=== PATIENT | male | born 1950 | race Caucasian/White ===

== ENCOUNTER 2018-10-08 08:41 | Day surgery (SDC) | payer MEDICARE, OTHER, SELFPAY ==
[2018-09-24 15:05] VITALS: BMI 27.1
[2018-10-08] VITALS (10 sets, daily range): BP systolic 102–125; BP diastolic 63–83; PULSE 54–76; RESP 12–17; TEMP 36.1–36.7; O2SAT 93–99; BMI 27.1
--- NOTE | 2018-10-08 | DI.RAD.S_ITS ---
PROCEDURE: XR LUMBAR SPINE 2-3V INDICATIONS: L5-S1 LAMINECTOMY TECHNIQUE: 2 intraoperative fluoroscopic views of the lumbar spine were acquired. COMPARISON: None. FINDINGS: Intraoperative fluoroscopic images of lower lumbar spine shows surgical instrument placed at left posterior L5-S1 level. IMPRESSION: Fluoroscopy guidance was provided intraoperatively for L5-S1 laminectomy. Dictated by: Roel Rojas M.D. on 10/08/2018 at 13:00 Approved by: Roel Rojas M.D. on 10/08/2018 at 13:01
[2018-10-08] MEDS: LACTATED RINGERS 1,000 ML 42 ML IV ×2 (09:57→12:13)
[2018-10-08] MEDS: CEFAZOLIN 2 GM/100 ML FROZ.PIGGY IV (11:13)
--- NOTE | 2018-10-08 11:36 | SUR.OPER ---
Prone on spine table, head in foam head support, padded chest and pelvic supports, gel pad at knees, lower legs supported by pillows; nipples, genitalia and toes free of pressure, arms secured on foam padded arm boards at <90 degrees abduction. Tape over blanket at thigh secured to table.
[2018-10-08] MEDS: methylPREDNISolone acet DEPO 40 MG/ML VIAL INJ (11:40)
[2018-10-08] MEDS: BUPIVACAINE 0.25% W/ EPI (PF) 10 ML VIAL INJ (11:41)
--- NOTE | 2018-10-08 12:10 | P.OP_ITS ---
Operative Date/Time/Diagnoses Date of procedure: 10/08/18 Time of procedure: 11:08 Pre-op diagnosis: 1. L5-S1 disc herniation 2. Lumbar radiculopathy Post-op diagnosis: same Procedure & Clinicians Procedure: 1. L5-S1 left microdiscectomy 2. Utilization of microsurgical technique and operating microscope Same procedure as scheduled: Yes Indications: Patient has been having chronic back pain and worsening lumbar radiculopathy. Patient failed multiple conservative management with worsening pain weakness and numbness in her lower extremity. Patient has been having difficulty performing activity of daily living. After discussing risks benefits of treatment options, patient elected proceed with surgery. Surgeon: Jordan Sher Flanging Machine Operator: Celeste Jones Click Yes if Unassisted: No Anesthesia Type: General Operative Notes Closure Type: primary Specimen(s): none sent Estimated Blood Loss (mL): 5 Blood products transfused: none Procedure in detail: Patient was seen in the preoperative area. Risks and benefits of the surgery was discussed with the patient. Informed consent was obtained from the patient and placed in the chart. Surgical site was marked. Patient was taken to the operative room. General anesthesia was administered. Prophylactic antibiotic was given to the patient less than 30 min before the incision was made. Patient was placed into a prone position on the Jose table. Patient's back was then prepped and draped in the sterile fashion. Time- out was performed at this time. Using AP and lateral C-arm imaging the interval between L5-S1 was identified and marked on patient's back. A 1 inch incision 1 in from midline was made on the left side. The fascia was incised in line with skin incision. Globus MARS retractors was placed inside the incision and docked onto the L5 lamina. Using microsurgical technique and operating microscope, a L5-S1 laminotomy was performed using a Kerrison rongeur. Liagamentum flavum was resected at the site of the laminotomy. The disc space at L5-S1 was identified. Microdiscectomy was performed by incising the annulus with #11 blade. Microcurettes and pituitary was used to removed herniated disc fragments of disc from the epidural space. After the microdiskectomy was completed, the area medial lateral superior and inferior to the area of the microdiskectomy was inspected and explored using a micro curette. No other impinging structure was identified. The wound was then irrigated with sterile normal saline. 40 mg Depo-Medrol was placed into the epidural space. The deep fascia was closed with 1-0 Vicryl. The subcutaneous tissue was closed with 2-0 Vicryl. The skin was closed with 4-0 Monocryl. Patient tolerated the procedure well. There were no complications. Patient was transferred recovery room in stable condition. Complications: none Condition: stable Disposition: PACU Plan for aftercare: Discharge to home
--- NOTE | 2018-10-08 12:36 | SUR.PHASEI ---
Report given to Margarita CHIU.
[2018-10-08] MEDS: fentaNYL 100 MCG/2 ML INJ 50 MCG IV (12:56)
[2018-10-08] MEDS: HYDROCODONE/ACET 5/325 TABLET 1 TAB PO (13:13)
== END 2018-10-08 14:11 | disposition home or self-care (01) ==
PROVIDERS: PCP Internal Medicine; Visit Provider Orthopaedic Surgery Orthopaedic Surgery of the Spine
PROC: (CPT 63030; principal; 2018-10-08 10:45)
DX: M51.16 Intervertebral disc disorders with radiculopathy, lumbar region (principal); M47.26 Other spondylosis with radiculopathy, lumbar region; I10 Essential (primary) hypertension; E78.00 Pure hypercholesterolemia, unspecified
CPT/HCPCS: 63030; 72100; 76000; J0690; J1030; J1100; J2405; J2704; J3010

== ENCOUNTER → 2019-01-19 08:04 | Outpatient (CLI) | payer MEDICARE, OTHER, SELFPAY ==
--- NOTE | 2019-01-19 | DI.US.S_ITS ---
PROCEDURE: US ABD AORTA ANEURYSM SCREEN INDICATIONS: AAA SCREENING TECHNIQUE: Real time scanning was performed of the aorta and iliac arteries, with image documentation. COMPARISON: None. FINDINGS: Aorta: Proximal aortic diameter measures 2.7 cm. Mid-aorta measures 2.3 cm. Distal aortic diameter is 1.9 cm. Iliac arteries: Right common iliac artery measures 1.2 cm. Left common iliac artery measures 1.2 cm. IMPRESSION: No abdominal aortic or proximal common iliac artery aneurysm. Dictated by: Vadim Longoria [facility] Interpreted: Roel Rojas MD on 01/19/2019 at 11:00 Approved by: Roel Rojas M.D. on 01/19/2019 at 11:40
== END ==
PROVIDERS: PCP Internal Medicine; Visit Provider Internal Medicine
DX: Z13.6 Encounter for screening for cardiovascular disorders (principal)
CPT/HCPCS: 76706

== ENCOUNTER → 2019-07-20 09:59 | Outpatient (CLI) | payer MEDICARE, OTHER, SELFPAY ==
[2019-07-20 11:35] LABS: BUN Creatinine Ratio 26.7 (6-22); Blood Urea Nitrogen 24 mg/dL (9-20); Carbon Dioxide 30 mmol/L (22-32); Chloride 103 mmol/L (98-107); Estimated Glomerular Filt Rate > 60.0 mL/min (>60); Glucose 92 mg/dL (80-110); HEMOLYSIS < 15 (0-50); Potassium 4.5 mmol/L (3.4-5.1); Sodium 141 mmol/L (137-145)
== END ==
PROVIDERS: PCP Internal Medicine; Referring Provider Internal Medicine; Visit Provider Internal Medicine
DX: I10 Essential (primary) hypertension (principal); M15.0 Primary generalized (osteo)arthritis; E78.2 Mixed hyperlipidemia; J45.909 Unspecified asthma, uncomplicated
CPT/HCPCS: 36415; 80048

== ENCOUNTER → 2020-01-02 11:34 | Outpatient (CLI) | payer MEDICARE, OTHER, SELFPAY ==
[2020-01-02 12:25] LABS: Add Manual Diff / Slide Review NO; Basophils Absolute Auto 0 /uL (0-100); Basophils Percent Auto 0.6 % (0-2); Eosinophils Absolute Auto 200 /uL (0-450); Eosinophils Percent Auto 3.3 % (2-4); Hematocrit 44.1 % (41-53); Hemoglobin 15.4 g/dL (13.5-17.5); Lymphocytes Absolute Auto 1600 /uL (1100-4500); Lymphocytes Percent Auto 25.1 % (25-40); Mean Corpuscular Hemoglobin 31.6 PG (26-34); Mean Corpuscular Volume 90.2 fL (80-100); Monocytes Absolute Auto 500 /uL (0-900); Monocytes Percent Auto 7.5 % (3-14); Neutrophils Absolute Auto 4200 /uL (1500-7000); Neutrophils Percent Auto 63.5 % (50-75); Platelet Count 265 X10^3/uL (150-400); Red Blood Cell Count 4.89 X10^6/uL (4.5-5.9); Red Cell Distribution Width 12.5 % (11.6-14.8); White Blood Cell Count 6.6 X10^3/uL (4.5-11.0)
[2020-01-02 12:35] LABS: Hemoglobin A1C% w Est Avg Glu 4.9 % (4.0-6.0)
[2020-01-02 13:14] LABS: BUN Creatinine Ratio 30.3 (6-22); Blood Urea Nitrogen 23 mg/dL (9-20); Calcium 10.2 mg/dL (8.4-10.2); Carbon Dioxide 29 mmol/L (22-32); Chloride 104 mmol/L (98-107); Estimated Glomerular Filt Rate > 60.0 mL/min (>60); Glucose 92 mg/dL (80-110); HEMOLYSIS < 15 (0-50); Potassium 4.5 mmol/L (3.4-5.1); Sodium 140 mmol/L (137-145)
[2020-01-02 13:49] LABS: Appearance Urine UA CLEAR; Bilirubin Urine UA NEGATIVE (NEGATIVE); Color Urine UA YELLOW; Glucose Urine UA NEGATIVE (Negative); Ketones Urine UA NEGATIVE (NEGATIVE); Leukocyte Esterase Urine UA NEGATIVE (NEGATIVE); Nitrite Urine UA NEGATIVE (Negative); Occult Blood Urine UA NEGATIVE (Negative); Protein Urine UA NEGATIVE (Negative); Specific Gravity Urine UA <=1.005 (1.000-1.035); Urobilinogen Urine UA 0.2 E.U./dL (0.2); pH Urine UA 6.5 (4.5-8.0)
[2020-01-02 13:58] LABS: Bacteria Urine Occasional (0-1); RBC Urine 0-1/HPF (0-5/HPF); WBC Urine 0-1/HPF (0-5/HPF)
[2020-01-02 13:59] LABS: Culture Indicated Urine Cult Not Indicated
== END ==
PROVIDERS: PCP Internal Medicine; Referring Provider Orthopaedic Surgery; Visit Provider Orthopaedic Surgery
DX: Z01.818 Encounter for other preprocedural examination (principal); Z01.812 Encounter for preprocedural laboratory examination; R73.9 Hyperglycemia, unspecified; N39.0 Urinary tract infection, site not specified
CPT/HCPCS: 36415; 80048; 81001; 83036; 85025; 93005

== ENCOUNTER → 2020-01-16 11:36 | Outpatient (CLI) | payer MEDICARE, OTHER, SELFPAY ==
[2020-01-17 20:07] LABS: COVID19 Sendout Not Detected (Not Detect)
== END ==
PROVIDERS: PCP Internal Medicine; Visit Provider Physician Assistant
DX: Z11.59 Encounter for screening for other viral diseases (principal)
CPT/HCPCS: 87635

== ENCOUNTER 2020-01-19 14:24 | Observation (INO) | payer MEDICARE, OTHER, SELFPAY ==
[2020-01-11 12:56] VITALS: BMI 26.9
[2020-01-19] VITALS (18 sets, daily range): BP systolic 83–154; BP diastolic 54–91; PULSE 57–96; RESP 9–19; TEMP 36–37.2; O2SAT 96–99; BMI 26.2
--- NOTE | 2020-01-19 | DI.RAD.S_ITS ---
PROCEDURE: XR HIP W PEL IF DONE RT 2V INDICATIONS: POST OP FILMS TECHNIQUE: 2 view(s) of the hip acquired. COMPARISON: [facility], [place], XR HIP W PEL IF DONE RT 2V, 01/19/2020, 9:24. FINDINGS: Bones: Patient is status post right hip arthroplasty, with hardware components in expected positions. The hip joint appears congruent. The visualized bony structures appear intact. Soft tissues: Overlying postoperative changes are noted. No suspicious soft tissue densities. IMPRESSION: Normal alignment established after right total hip arthroplasty. Dictated by: Kingsley Sheffield M.D. on 01/19/2020 at 12:13 Approved by: Kingsley Sheffield M.D. on 01/19/2020 at 12:13
--- NOTE | 2020-01-19 06:00 | DI.RAD.S_ITS ---
Caution: Report not yet finalized and possibly incomplete! PROCEDURE: XR HIP W PEL IF DONE RT 2V INDICATIONS: INTEROP FILMS TECHNIQUE: Fluoroscopic images were obtained during an operative procedure and submitted for interpretation following the completion of the procedure. COMPARISON: [facility], MR, MR HIP RIGHT WITHOUT CONTRAST, 12/07/2019, 10:21. FINDINGS: These fluoroscopic images were performed for intraoperative localization. On these images, placement of right hip arthroplasty hardware can be seen. Please correlate with intraoperative findings. . IMPRESSION: Normal intraoperative examination. Dictated by: David Alexis M.D. on 01/19/2020 at 10:01 Approved by: David Alexis M.D. on 01/19/2020 at 10:02
[2020-01-19] MEDS: LACTATED RINGERS 1,000 ML 42 ML IV ×2 (06:55→11:30)
[2020-01-19] MEDS: ACETAMINOPHEN 325 MG TABLET 975 MG PO (06:56)
[2020-01-19] MEDS: PREGABALIN 75 MG CAPSULE PO (06:56)
[2020-01-19] MEDS: CELECOXIB 200 MG CAPSULE PO (06:56)
[2020-01-19] MEDS: VANCOMYCIN 1,000 MG/200 ML PIGGYBACK 200 MG IV (06:58)
--- NOTE | 2020-01-19 07:02 | SUR.PREOP ---
pt only given partial dose of tylenol ordered as pt took 500mg of Tylenol this morning prior to arriving at facility.
--- NOTE | 2020-01-19 07:36 | PM.PREOP ---
Pre-operative Note COVID-19 COVID-19 status: Negative Interval Note History & Physical reviewed/Exam performed by Physician: Yes Changes to H&P: No
--- NOTE | 2020-01-19 07:37 | P.OP_ITS ---
Operative Date/Time/Diagnoses Date of procedure: 01/19/20 Time of procedure: 07:55 Pre-op diagnosis: Right hip OA Post-op diagnosis: same Procedure & Clinicians Procedure: Right total hip arthroplasty anterior approach Same procedure as scheduled: Yes Indications: The patient has had progressively worsening right hip pain with radiographic changes consistent with arthritis. Non-operative management has failed and the patient has requested total hip replacement. The risks, benefits and alternatives to surgery were discussed with the patient prior to proceeding. Risks discussed included, but were not limited to, failure to relieve pain, leg length discrepancy, dislocation, stiffness, infection, nerve damage, deep venous thrombosis, pulmonary embolism, stroke, coma, heart attack, permanent paralysis and , as well as the potential need for eventual revision of the prosthetic. Surgeon: Atiya Storm Oil Well Pumper: Arvind Rucker Anesthesia Type: General and Spinal Operative Notes Findings: Severe right hip osteoarthritis, good quality bone, adequate stability Closure Type: primary Specimen(s): none sent Prosthetic devices, grafts, tissues, transplants, or devices: [employer] anthology A size 6, standard offset, 52 mm cup, 36 by -3 Oxinium head, one 20 mm screw Estimated Blood Loss (mL): 250 Blood products transfused: none Procedure in detail: The patient was brought to the operating room. Patient was carefully positioned in the supine position. Time-out was performed and antibiotics were given. Anesthesia was induced. He was positioned in the on the table in order to allow hyperextension of the hip. The right lower extremity was prepped and draped in a standard sterile fashion. An anterior right hip incision was made 1 fingerbreadth lateral to the anterior superior iliac spine and extended distally towards the greater trochanter. Dissection was carried out through skin and subcutaneous tissues. The skin and subcutaneous tissues were carefully injected with Lidocaine with epi. Superficial hemostasis was achieved. The fascia over the tensor fascia jenn was defined and incised with a knife. Two Allis clamps were used to grasp the fascia. Tensor fascia jenn was retracted laterally. A gelpi retractor was placed. Dissection was carried out down along the neck. The circumflex vessels were carefully identified and cauterized with the Aqua Mantis. There was good visualization of the femoral neck. A Cobra was placed superior to the neck and the gluteus fibers were carefully stripped from that superior aspect of the capsule. A 2nd retractor was placed along the inferior aspect of the neck. The rectus insertion along the capsule was partially released. A 3rd retractor that was then gently placed over the rim of the acetabulum under the rectus. Capsule was carefully incised and released from the intertrochanteric line circumferentially superior to the mid sagittal line and inferiorly to the mid sagittal line until the lesser trochanter was palpable. A tag stitch was placed both in the superior and inferior limb of the capsular insertion. Along the acetabulum capsule was also released up to the mid sagittal 12:00 position. A portion of the labrum was resected. A saw was used to perform an osteotomy at the level of the intertrochanteric line and the junction of the superior femoral neck leaving approximately 1 finger breath of residual inferior neck above the lesser trochanter. A 2nd cut was made along the femoral neck at the base of the head and a napkin ring of neck was removed. Corkscrew was placed in the femoral head and the head was removed without difficulty. Retractors were then repositioned around the acetabulum. Residual labrum was resected and additional osteophytes were removed. A reamer that was 4 mm below the templated size was placed by hand in the acetabulum and it was reamed to centralize the acetabulum. It was then reamed up to 2 under the templated size and fluoroscopy was brought in to confirm the position of the reaming and depth of reaming. I reamed 1 under the anticipated size. A trial cup was placed and noted that it was appropriately sized and fluoroscopy confirmed position and depth. The component was open and inserted without difficulty fluoroscopic imaging was used to confirm that the cup had been adequately seated and was well positioned. The cup was further stabilized with a single screw. Neutral poly liner was placed. The cup was tested and noted to be stable. Attention was then directed to the femur. The femur was gently hyperextended additional capsular release was performed as needed in order to allow adequate visualization of the proximal femur with elevation of the femur. Patient was placed in a hyperextended slightly adducted position with maximum external rotation. Box osteotome was used to check for any residual neck as well as sclerotic bone along the trochanter. [place] pepper was placed in the femur. Additional broaching was performed. Canal finder was used to determine the alignment of the canal and position. Size 1 broach was placed. The canal was then appropriately broached up to the templated size as long as there was adequate stability of the broach and serial advancement of the broach without excessive impingement. Specific attention was directed at avoiding varus attempting to direct the distal aspect of the broach more anteriorly and avoiding excessive anteversion. Trial reduction showed acceptable range of motion, good stability, no posterior impingement, nondenominational of leg length and appropriate lateral shuck. I also hyperflexed the hip and checked that there was no impingement anteriorly and there was good stability with flexion, adduction and internal rotation. Marcaine and Exparel were injected. The stem was placed without difficulty. Repeat trial reduction and x-ray showed acceptable overall position, length, and no evidence of the femoral fracture. Final head was placed. Wound was meticulously irrigated with normal saline. The hip was reduced and additional Exparel and Marcaine were injected. The capsule was closed with interrupted nonabsorbable sutures. The fascia of the tensor was closed with interrupted and running Vicryl. No drain was placed. Any tensor fascia jenn muscle that appeared to be contused or injured which was a minimal amount was carefully resected. Capsule around the tensor was injected with Exparel and Marcaine. The skin was closed with barbed stitches for the subcutaneous tissue and skin. We also used surgical glue. The wound was dressed sterilely. Brief Betadine soak was also used and was meticulously irrigated with normal saline. Patient was transferred to recovery room in satisfactory condition. Complications: none Post-operative Condition: stable Disposition: Acute Care Plan for aftercare: The patient will be maintained on a standard total hip replacement protocol with weight bearing as tolerated and anterior hip precautions. The patient will receive Aspirin and sequential compression devices for DVT prophylaxis. The patient will be discharged home when safe for the home environment.
[2020-01-19] MEDS: CEFAZOLIN 2 GM/100 ML FROZ.PIGGY IV ×2 (08:01→17:05)
[2020-01-19] MEDS: TRANEXAMIC ACID 1,000 MG VIAL 1000 MG INJ ×2 (08:19→10:41)
--- NOTE | 2020-01-19 08:32 | SUR.OPER ---
Supine on padded [place] table with bilateral legs secured in padded positioning boots and suspended in positioning spars, operative leg in traction per surgeon. Head on one pillow. Arm on non-operative side secured on padded armboard <90 degrees abduction. Arm on operative side padded and resting across chest then secured with tape over sheet. Padded perineal post in place per surgeon.
[2020-01-19] MEDS: BUPIVACAINE 0.25% W/ EPI 30 ML VIAL 60 ML INJ (08:39)
[2020-01-19] MEDS: BUPIVACAINE LIPOSOME 266 MG/20 ML VIAL INJ (08:39)
[2020-01-19] MEDS: SODIUM CHLORIDE IRRIG SOLUTION 250 ML, POVIDONE-IODINE SPONGE STICKS 1 APPLIC IRR (08:40)
[2020-01-19] MEDS: KETOROLAC 30 MG/ML VIAL 10 MG IV (11:51)
[2020-01-19] MEDS: LACTATED RINGERS 1,000 ML 125 ML IV ×2 (12:45→21:19)
[2020-01-19] MEDS: IBUPROFEN 400 MG TABLET PO ×3 (14:47→21:23)
[2020-01-19] MEDS: ACETAMINOPHEN 325 MG TABLET 650 MG PO ×2 (14:48→21:20)
--- NOTE | 2020-01-19 16:07 | PT.IIE ---
Current Diagnoses Unilateral primary osteoarthritis, right hip (01/19/20) Surgery Performed Operation Date: 01/19/20 07:45 Actual Procedures p Total Hip Arthroplasty/Anterior Approach(Right) - Atiya Storm MD Surgical History (Last Updated 01/11/20 @ 13:01 by Mary Jo Saldivar RN) Hx of arthroscopy of left knee (Acute) Hx of colonoscopy with polypectomy (Acute ~2016) Hx of microdiscectomy (Acute 10/08/18) Medical History (Last Updated 01/11/20 @ 13:12 by Mary Jo Saldivar RN) Asthma (Acute) BCC (basal cell carcinoma) (Acute) Easy bruisability (Acute) History of Mohs micrographic surgery for skin cancer (Acute) HLD (hyperlipidemia) (Acute) HTN (hypertension) (Acute) Osteoarthritis (Acute) Physical Therapy Inpatient Evaluation/Re-Eval M1 PT/OT-IP Prior Functional Status Start: 01/19/20 14:38 Freq: NEEDED Status: Active Protocol: Document 01/19/20 15:41 AW (Rec: 01/19/20 16:07 AW [email or web address]) Medical Review Prior Functional Status Medical History Reviewed Yes Communication No known deficits. Mobility and Gait Independent without assistive device. Pt is able to walk long distances on flat surfaces but has increased pain with hill climbing and stairs. Activities of Daily Living and IADL's Independent. Social History Household Members spouse Living Arrangements House Number of Floors (Floors) Two Floors Number of Stairs To Enter/Railing? 2 steps + porch + 1 step to enter. Stairs are wide and not steep but have no railing. 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 Both are retired. Tiana will be able to care for the pt at discharge. M2 PT-IP Current Condition Start: 01/19/20 14:38 Freq: NEEDED Status: Active Protocol: Document 01/19/20 15:41 AW (Rec: 01/19/20 16:07 AW [email or web address]) Physical Therapy Current Condition Current Condition Evaluation Date 01/19/20 Treatment Diagnosis R LILIANE with anterior approach; difficulty in walking Onset Date 01/19/20 Precautions Anterior Hip Precautions No Hip Extension,No Hip External Rotation Weight Bearing Status Weight Bearing Status Weight Bear as Tolerated M3 PT-IP Subjective Start: 01/19/20 14:38 Freq: NEEDED Status: Active Protocol: Document 01/19/20 15:41 AW (Rec: 01/19/20 16:07 AW [email or web address]) Subjective Physical Therapy Visit Type Type Initial Evaluation Visit Start Time 15:00 Visit Stop Time 15:40 Total Visit Minutes 40 Number of RESCUE INSTRUCTOR Visits 0 Physical Therapy Visit Comments Patient Comments Pt is willing to participate with PT Patient Goals To gain confidence in his operative hip and return home Therapy Pain Assessment Pain When Pain Assessed During Mobility Pain Present Pain Present Pain Reported Location Right Hip Intensity 3 Pain Management Techniques Apply Cold,Re-positioning, Timing of Activity with Medications M4 PT-IP Mobility and Gait Start: 01/19/20 14:38 Freq: NEEDED Status: Active Protocol: Document 01/19/20 15:41 AW (Rec: 01/19/20 16:07 AW [email or web address]) PT-Bed Mobility Assessment Supine to Sit Supine to Sit Standby Assistance,1 Person Assistance Scooting Scooting to Edge of Bed Standby Assistance PT-Transfer Assessment Sit to and From Stand Sit to and from Stand Contact Guard Assistance,1 Person Assistance,Use of Upper Extremities Equipment Transfer Assistive Device Gait Belt,Front Wheeled Walker Orthotic/Prosthetic Devices or Brace: No Transfers Transfer Destination Chair,Toilet Transfer Technique pt ambulated with FWW Transfer Ability Level of Assist Standby Assistance,1 Person Assistance,Use of Upper Extremities Comments Mobility Comments With HOB flat, pt was able to exit the bed to the right, completing supine to sit SBA. BP was stable 120's/60's in supine and sitting. Pt had no complaint of lightheadedness. He stood from the bed in lowest position CGA and was able to shift weight bilaterally with moderate UE weightbearing on the walker. He requested to attempt to void and ambulated to the toilet with FWW CGA. He stood with good balance to void but was unsuccessful. He then agreed to ambulate in the halls. PT reviewed anterior hip precautions including step -to gait to avoid hip extension. Pt required verbal cues to maintain step-to patterning. After ambulating ~ 100 feet and participating in stair training, pt returned to the room and transferred to the chair SBA. He was left in the chair, reclined with call light and all needs in reach, fresh ice pack applied, and visiting in the room. Pt agreed to use the call light for all mobility needs. Gait Assessment Gait Gait Assistance Required: Standby Assistance Distance (Feet) 100 Able to Maintain Weight Bearing Status Yes During Gait Assistive Devices Assistive Device Gait Belt,Front Wheeled Walker Orthotic/Prosthetic Devices or Brace: No Gait Deviations General Gait Pattern Antalgic,Decreased Stride Length,Decreased Feet Clearance,Step-to Gait Factors Limiting Gait Function Factors Limiting Gait Function Decreased Sensation,Decreased Strength,Difficulty Following Directions,Limited Range of Motion,Pain,Poor Balance Comments Gait Comments Pt required multiple cues to avoid hip extension in gait, especially while backing up. Stair Climbing Assessment Evaluation Level of Assist On Stairs Contact Guard Assistance,1 Person Assistance Devices Stair Climbing Assistive Devices Left Railing,Right Railing Technique/Endurance Stair Climbing Direction Ascend and Descend Stair Climbing Technique Step to Step Number of Steps Climbed 3 Query Text: Stair Climbing Set # Repetitions (reps) 1 Comments Stair Climbing Comments Practiced stairs with bilateral rails for patterning with pt able to recall and demonstrate after brief education. Will progress to stairs with SEALANT MIXER/SPC at next visit. PT-Balance Assessment Sitting Balance and Reactions Static Sitting Balance Ability Normal Dynamic Sitting Balance Ability Normal Standing Balance and Reactions Static Standing Balance Ability Good Dynamic Standing Balance Ability Good Device Used FWW M5 PT-IP Objective Assessments Start: 01/19/20 14:38 Freq: NEEDED Status: Active Protocol: Document 01/19/20 15:41 AW (Rec: 01/19/20 16:07 AW [email or web address]) Orientation Orientation/Cognition Level of Alertness Alert Orientation Name,Day of Week,Place, Situation Language Function Ability No Deficits Noted Safety Awareness Understands Safety Issues Memory Description No Deficits Noted Gross Range of Motion Upper Extremity ROM Assessment Within Functional Limits Lower Extremity ROM Assessment Right Impaired Strength Upper Extremity Strength Assessment Within Functional Limits Lower Extremity Strength Assessment Right Impaired Comments Strength Comments LLE grossly 5/5 Coordination Assessment Gross Coordination Gross Coordination WNL Sensation Assessment Sensation Gross Sensation Right LE Impaired,Left LE Impaired Comments Sensation Comments Pt reports numb bilateral glutes and posterior thighs. Muscle Tone Muscle Tone WNL Yes M6 PT-IP Treatment Start: 01/19/20 14:38 Freq: NEEDED Status: Active Protocol: Document 01/19/20 15:41 AW (Rec: 01/19/20 16:07 AW [email or web address]) Physical Therapy Treatment Exercises Exercises Ankle Pumps,Gluteal Sets,Quad Sets,Heel Slides Education Education Provided Precautions,Weight Bearing Status,Post-Op Packet,Safety Other Treatments Other Treatment Performed Provided education on role of PT, plan of care, weightbearing status, anterior hip precautions, and safe use of FWW. M7 PT-IP Assessment and Plan Start: 01/19/20 14:38 Freq: NEEDED Status: Active Protocol: Document 01/19/20 15:41 AW (Rec: 01/19/20 16:07 AW [email or web address]) PT Summary Assessment and Plan Potential Rehabilitation Potential Excellent Status of Condition at Evaluation Evolving Summary Impairments Pain,ROM,Strength,Balance, Sensation,Bed Mobility, Transfers,Gait,Activity Tolerance Assessment Summary Kevan is a 69 yo man seen for PT evaluation on POD0 followiong L LILIANE with anterior approach. He is independent in all regards at baseline. He lives with his . Both are retired. On evaluation, pt required SBA to CGA for all mobilities and cues to maintain anterior hip precautions during gait. He will benefit from continued acute PT to reinforce anterior hip precautions and to progress stair training. Once he has clears stairs, PT anticipates he will be safe to discharge home. Goals Bed Mobility Goal Independent Transfer Goal Independent,Front Wheeled Walker Gait Goal Independent,Front Wheel Walker Gait Distance 200 Other Goals - up/down 3 steps with SEALANT MIXER and /or SPC CGA Days to Meet Goals 2 Frequency of Treatment Frequency Of Treatment Twice a Day Treatment Plan Physical Therapy Treatment Plan Bed Mobility Training,Transfer Training,Gait Training, Therapeutic Exercise,Balance Retraining,Post Op Education, Discharge Planning,Hot or Cold Pack Recommendations To Nursing Amount of Assist Needed Standby Assistance Discharge Recommendations PT Discharge Recommendations Home with Assistance, Outpatient PT Transportation Needs at Discharge Private Vehicle
[2020-01-19] MEDS: SIMVASTATIN 40 MG TABLET PO (17:04)
[2020-01-19] MEDS: LOSARTAN 50 MG TABLET PO (21:19)
[2020-01-19] MEDS: ASPIRIN EC 81 MG TABLET PO (21:19)
[2020-01-19] MEDS: DOCUSATE 100 MG CAPSULE PO (21:21)
[2020-01-20] MEDS: CEFAZOLIN 2 GM/100 ML FROZ.PIGGY IV (00:05)
[2020-01-20 00:49] VITALS: BP 134/78; PULSE 77; RESP 16; TEMP 36.7; O2SAT 96
[2020-01-20] MEDS: IBUPROFEN 400 MG TABLET PO ×3 (01:28→08:37)
[2020-01-20 05:16] VITALS: BP 136/73; PULSE 87; RESP 18; TEMP 36.5; O2SAT 97
--- NOTE | 2020-01-20 05:35 | PC.NURSE ---
Patient feels he will still need his IVF this morning, when asked if he felt he was taking in plenty of po hydration.
[2020-01-20 07:15] LABS: Hematocrit 35.7 % (41-53); Hemoglobin 12.3 g/dL (13.5-17.5)
[2020-01-20 07:30] VITALS: BP 137/80; PULSE 81; RESP 19; TEMP 36.8; O2SAT 97
--- NOTE | 2020-01-20 07:30 | PM.PN.1 ---
Subjective Subjective Date Patient Seen: 01/20/20 Time Patient Seen: 07:30 Interval history: Kevan doing well status post a anterior right total hip arthroplasty. He did get up with nursing yesterday. He has been voiding spontaneously and has pain that is well-controlled with Tylenol and ibuprofen. Exam Vital Signs (past 8 hours): - 01/20/20 00:49 01/20/20 05:16 Temperature 98.0 F 97.7 F Pulse Rate 77 87 Respiratory Rate 16 18 Blood Pressure 134/78 136/73 Pulse Oximetry 96 97 Oxygen Delivery Method Room Air Oxygen Flow Rate 0 Narrative Exam Narrative: Is alert he is oriented he has a dry dressing intact over his right hip is calfs are soft bilaterally can actively flex his right hip without difficulty and has no significant pain with gentle range of motion in his right hip Objective Labs Result Diagrams: 01/20/20 06:57 Labs: Laboratory Results - last 24 hr 01/20/20 06:57 Hgb 12.3 L Hct 35.7 L Assessment & Plan Assessment & Plan narrative: Doing well status post right total hip arthroplasty I think it is repeat okay for me be discharged to home today. He will do outpatient physical therapy and follow-up in about 10 days.
[2020-01-20] MEDS: ACETAMINOPHEN 325 MG TABLET 650 MG PO (08:36)
[2020-01-20] MEDS: DOCUSATE 100 MG CAPSULE PO (08:37)
[2020-01-20] MEDS: LOSARTAN 50 MG TABLET PO (08:38)
[2020-01-20] MEDS: ASPIRIN EC 81 MG TABLET PO (08:38)
[2020-01-20] MEDS: FISH OIL 1,000 MG CAPSULE 1000 MG PO (08:47)
[2020-01-20 10:33] VITALS: PULSE 88; RESP 17; O2SAT 98
--- NOTE | 2020-01-20 11:10 | PT.IPTN ---
Current Diagnoses Unilateral primary osteoarthritis, right hip (01/19/20) Surgery Performed Operation Date: 01/19/20 07:45 Actual Procedures p Total Hip Arthroplasty/Anterior Approach(Right) - Atiya Storm MD Physical Therapy Treatment Note M2 PT-IP Current Condition Start: 01/19/20 14:38 Freq: NEEDED Status: Active Protocol: Document 01/19/20 15:41 AW (Rec: 01/19/20 16:07 AW [email or web address]) Physical Therapy Current Condition Current Condition Evaluation Date 01/19/20 Treatment Diagnosis R LILIANE with anterior approach; difficulty in walking Onset Date 01/19/20 Precautions Anterior Hip Precautions No Hip Extension,No Hip External Rotation Weight Bearing Status Weight Bearing Status Weight Bear as Tolerated M3 PT-IP Subjective Start: 01/19/20 14:38 Freq: NEEDED Status: Active Protocol: Document 01/20/20 11:02 HH (Rec: 01/20/20 11:10 [email or web address]) Subjective Physical Therapy Visit Type Type Treatment Note Visit Start Time 09:00 Visit Stop Time 09:26 Total Visit Minutes 26 Notes attended session Number of [employer]IST Visits 0 Physical Therapy Visit Comments Patient Comments Pt is willing to participate with PT Patient Goals To gain confidence in his operative hip and return home Therapy Pain Assessment Pain When Pain Assessed During Mobility Pain Present Pain Present Pain Reported Location Right Hip Intensity 3 Pain Management Techniques Apply Cold,Re-positioning, Timing of Activity with Medications M4 PT-IP Mobility and Gait Start: 01/19/20 14:38 Freq: NEEDED Status: Active Protocol: Document 01/20/20 11:02 HH (Rec: 01/20/20 11:10 [email or web address]) PT-Bed Mobility Assessment Supine to Sit Supine to Sit Standby Assistance Scooting Scooting to Edge of Bed Standby Assistance PT-Transfer Assessment Sit to and From Stand Sit to and from Stand Standby Assistance,Use of Upper Extremities Equipment Transfer Assistive Device Gait Belt,Front Wheeled Walker Orthotic/Prosthetic Devices or Brace: No Transfers Transfer Destination Chair,Toilet Transfer Technique pt ambulated with FWW Transfer Ability Level of Assist Standby Assistance,Use of Upper Extremities Comments Mobility Comments Pt was in bed upon PT arrival and at bedside. Reviewed precautions with pt. Pt was able to use his LLE to lift his R LE to pivot to bedside followed by STS with FWW. Pt c /o stiffness at R hip initially but he was able to amb. Pt then amb a lap of [facility] with PT SBA. He also completed stair climbing x 4 round with PT / CHUMMER safely. He then returned to room chair and sat theree comfortably. Call light placed within reach. Gait Assessment Gait Gait Assistance Required: Standby Assistance Distance (Feet) 220 Able to Maintain Weight Bearing Status Yes During Gait Assistive Devices Assistive Device Gait Belt,Front Wheeled Walker Orthotic/Prosthetic Devices or Brace: No Gait Deviations General Gait Pattern Antalgic,Decreased Stride Length,Decreased Feet Clearance,Step-to Gait Factors Limiting Gait Function Factors Limiting Gait Function Decreased Sensation,Decreased Strength,Difficulty Following Directions,Limited Range of Motion,Pain,Poor Balance Comments Gait Comments see mobility comments Stair Climbing Assessment Evaluation Level of Assist On Stairs Minimal Assistance Devices Stair Climbing Assistive Devices None Technique/Endurance Stair Climbing Direction Ascend and Descend Stair Climbing Technique Step to Step Number of Steps Climbed 3 Stair Climbing Set # Repetitions (reps) 4 Comments Stair Climbing Comments Practiced stairs with CHUMMER on RUE x 4rounds. 2rounds with PT and 2 rounds with . Pt was able to lead with L for ascend and R for descend safely. PT-Balance Assessment Sitting Balance and Reactions Static Sitting Balance Ability Normal Dynamic Sitting Balance Ability Normal Standing Balance and Reactions Static Standing Balance Ability Good Dynamic Standing Balance Ability Good Device Used FWW M5 PT-IP Objective Assessments Start: 01/19/20 14:38 Freq: NEEDED Status: Active Protocol: Document 01/19/20 15:41 AW (Rec: 01/19/20 16:07 AW [email or web address]) Orientation Orientation/Cognition Level of Alertness Alert Orientation Name,Day of Week,Place, Situation Language Function Ability No Deficits Noted Safety Awareness Understands Safety Issues Memory Description No Deficits Noted Gross Range of Motion Upper Extremity ROM Assessment Within Functional Limits Lower Extremity ROM Assessment Right Impaired Strength Upper Extremity Strength Assessment Within Functional Limits Lower Extremity Strength Assessment Right Impaired Comments Strength Comments LLE grossly 5/5 Coordination Assessment Gross Coordination Gross Coordination WNL Sensation Assessment Sensation Gross Sensation Right LE Impaired,Left LE Impaired Comments Sensation Comments Pt reports numb bilateral glutes and posterior thighs. Muscle Tone Muscle Tone WNL Yes M6 PT-IP Treatment Start: 01/19/20 14:38 Freq: NEEDED Status: Active Protocol: Document 01/19/20 15:41 AW (Rec: 01/19/20 16:07 AW [email or web address]) Physical Therapy Treatment Exercises Exercises Ankle Pumps,Gluteal Sets,Quad Sets,Heel Slides Education Education Provided Precautions,Weight Bearing Status,Post-Op Packet,Safety Other Treatments Other Treatment Performed Provided education on role of PT, plan of care, weightbearing status, anterior hip precautions, and safe use of FWW. M7 PT-IP Assessment and Plan Start: 01/19/20 14:38 Freq: NEEDED Status: Active Protocol: Document 01/20/20 11:02 (Rec: 01/20/20 11:10 [email or web address]) PT Summary Assessment and Plan Potential Rehabilitation Potential Excellent Status of Condition at Evaluation Stable Summary Impairments Pain,ROM,Strength,Balance, Sensation,Bed Mobility, Transfers,Gait,Activity Tolerance Progress Towards Goals Safe For Discharge Assessment Summary Kevan shows improved amb distance and less assistance needed in general. He completed stair climbing x 4 with CHUMMER on R with and PT . He is safe to d/c home with assistance and outpatient PT Frequency of Treatment Frequency Of Treatment Discharge Recommendations To Nursing Amount of Assist Needed Standby Assistance Discharge Recommendations PT Discharge Recommendations Home with Assistance, Outpatient PT Transportation Needs at Discharge Private Vehicle
--- NOTE | 2020-01-20 12:49 | PC.NURSE ---
10:45- PATIENT DISCHARGED. SCRIPTS PROVIDED TO PATIENT. REVIEWED DISCHARGE INSTRUCTIONS, PATIENT AND SPOUSE CONFIRMED UNDERSTANDING. PATIENT ESCORTED BY HOUSE BUILDER TO VEHICLE BY WHEELCHAIR.
--- NOTE | 2020-01-20 13:28 | CM.IDA ---
Initial DCP Assessment Note Pt is a 69 yo male, resident of [place], now POD#1 from [facility] w/ Dr Storm PCP: Saul Mathew Payer: LATOYA/Astrid Reviewed chart, pt discussed in multidisciplinary rounds this morning. Therapy has cleared pt for return home w/family to assist and pt has planned for home, DC order from Ortho has already been initiated this morning. Patient eager to return home, states no needs from this [employer] ESTELLA Rawls
== END 2020-01-20 11:00 | disposition home or self-care (01) ==
LOC: OR 01-20 07:59 → AC 01-20 07:59
PROVIDERS: Admitting Provider Orthopaedic Surgery; PCP Internal Medicine; Referring Provider Internal Medicine; Visit Provider Orthopaedic Surgery
PROC: (CPT 27130; principal; 2020-01-19 07:45)
DX: M16.11 Unilateral primary osteoarthritis, right hip (principal); I10 Essential (primary) hypertension; E78.00 Pure hypercholesterolemia, unspecified
CPT/HCPCS: 27130; 36415; 73502; 76000; 85014; 85018; 94760; 97116; 97161; 97530; C1776; G0378; A9270; C9290; J0690; J1100; J1885; J2250; J2405; J2704; J3010

== ENCOUNTER → 2023-09-07 09:18 | Outpatient (CLI) | payer MEDICARE, OTHER, SELFPAY ==
[2020-01-19 12:15] VITALS: BMI 26.2
[2023-09-07 11:27] LABS: Add Manual Diff / Slide Review NO; Basophils Absolute Auto 0 /uL (0-100); Basophils Percent Auto 0.8 % (0-2); Eosinophils Absolute Auto 200 /uL (0-450); Eosinophils Percent Auto 4.2 % (2-4); Hematocrit 41.7 % (41-53); Hemoglobin 14.5 g/dL (13.5-17.5); Lymphocytes Absolute Auto 1400 /uL (1100-4500); Lymphocytes Percent Auto 25.5 % (25-40); Mean Corpuscular HGB Conc 34.7 % (30-36); Mean Corpuscular Hemoglobin 31.6 PG (26-34); Mean Corpuscular Volume 91.2 fL (80-100); Monocytes Absolute Auto 400 /uL (0-900); Monocytes Percent Auto 7.8 % (3-14); Neutrophils Absolute Auto 3500 /uL (1500-7000); Neutrophils Percent Auto 61.7 % (50-75); Platelet Count 232 X10^3/uL (150-400); Red Blood Cell Count 4.57 X10^6/uL (4.5-5.9); Red Cell Distribution Width 12.8 % (11.6-14.8); White Blood Cell Count 5.6 X10^3/uL (4.5-11.0)
[2023-09-07 11:34] LABS: BUN Creatinine Ratio 27.8 (6-22); Blood Urea Nitrogen 22 mg/dL (9-20); Calcium 9.4 mg/dL (8.4-10.2); Carbon Dioxide 28 mmol/L (22-32); Chloride 109 mmol/L (98-107); Estimated Glomerular Filt Rate > 60 mL/min (>60); Glucose 91 mg/dL (80-110); HEMOLYSIS < 15 (0-50); Potassium 4.9 mmol/L (3.4-5.1); Sodium 141 mmol/L (137-145)
== END ==
PROVIDERS: PCP Orthopaedic Surgery Orthopaedic Surgery of the Spine; Referring Provider Orthopaedic Surgery Orthopaedic Surgery of the Spine; Visit Provider Orthopaedic Surgery Orthopaedic Surgery of the Spine
DX: Z01.818 Encounter for other preprocedural examination (principal); Z01.812 Encounter for preprocedural laboratory examination
CPT/HCPCS: 36415; 80048; 85025; 93005